=== PATIENT | male | born 1960 | race Caucasian/White ===

== ENCOUNTER 2019-08-11 08:41 | Emergency (ER) | payer OTHER ==
[~2019-08-11] VITALS: Ht 188 cm; Wt 107.8 kg
[2019-08-11] MEDS ORDERED: KETOROLAC 30 MG/ML VIAL (J1885) IV ONE (09:15)
[2019-08-11 09:29] LABS: BASO # 0.1 10^3/uL (0.0-0.2); BASO % 0.7 % (0.0-1.0); EOS # 0.3 10^3/uL (0.0-0.5); EOS % 3.3 % (0.0-3.0); HEMATOCRIT 46.9 % (42.0-52.0); HEMOGLOBIN 15.3 g/dl (13.5-17.5); LYMPH # 2.2 10^3/uL (1.5-5.0); LYMPH % 23.6 % (24.0-44.0); MEAN CORPUSCULAR HEMOGLOBIN 31.5 pg (27.0-33.0); MEAN CORPUSCULAR HGB CONC 32.6 g/dl (32.0-36.5); MEAN CORPUSCULAR VOLUME 96.7 fl (80.0-96.0); MONO # 0.8 10^3/uL (0.0-0.8); MONO % 8.3 % (0.0-5.0); NEUTROPHILS # 5.9 10^3/uL (1.5-8.5); NEUTROPHILS % 63.8 % (36.0-66.0); PLATELET COUNT, AUTOMATED 364 10^3/uL (150-450); RED BLOOD COUNT 4.85 10^6/uL (4.30-6.10); WHITE BLOOD COUNT 9.2 10^3/uL (4.0-10.0)
[2019-08-11] MEDS ORDERED: MORPHINE 4 MG/ML 1ML VIAL/SYRINGE (J2270) IV ONE (09:45)
[2019-08-11 09:58] LABS: ALBUMIN 3.7 GM/DL (3.2-5.2); ALT/SGPT 29 U/L (12-78); BILIRUBIN,DIRECT < 0.1 MG/DL (0.0-0.2); BILIRUBIN,TOTAL 0.5 MG/DL (0.2-1.0); BLOOD UREA NITROGEN 9 MG/DL (7-18); CARBON DIOXIDE LEVEL 28 MEQ/L (21-32); CHLORIDE LEVEL 106 MEQ/L (98-107); CREATININE FOR GFR 1.18 MG/DL (0.70-1.30); GLOMERULAR FILTRATION RATE > 60.0 (>56); GLUCOSE, FASTING 94 MG/DL (70-100); LIPASE 107 U/L (73-393); POTASSIUM SERUM 3.9 MEQ/L (3.5-5.1); SODIUM LEVEL 141 MEQ/L (136-145); TOTAL PROTEIN 7.3 GM/DL (6.4-8.2)
[2019-08-11] MEDS ORDERED: CIPR-249 PO (10:55)
[2019-08-11] MEDS ORDERED: NORC1TAB7 PO (10:55)
[2019-08-11] MEDS ORDERED: FLAG500T PO (10:55)
[2019-08-11] MEDS ORDERED: ONDA4TAB6 PO (10:55)
--- NOTE | 2019-08-11 10:58 | REP ---
CT ABDOMEN AND PELVIS WITHOUT IV OR ORAL CONTRAST: HISTORY: Right flank pain, rule out stone. No comparison CT study. CT FINDINGS: Preliminary digital trim installer radiograph is unremarkable. Normal bowel gas pattern. The lung bases are clear on axial CT images. The liver and the spleen are normal in size homogeneous in texture. No abnormality is noted the gallbladder or pancreas. No adrenal lesion is seen. There is no evidence of intrarenal nephrolithiasis or hydronephrosis on either side. No retroperitoneal mass or adenopathy is observed. Normal appendix is seen retrocecal in position. There is sigmoid colon diverticulosis. There is some diverticulosis in the descending colon as well. There is a segment of mural thickening associated with diverticulosis in the sigmoid colon and there is some pericolonic fat streaking extending superiorly to the left of midline consistent with acute diverticulitis. No abscess or un-contained gas is seen. No free intraperitoneal air is seen. No abdominal wall defect. No bony destructive lesion. There are a few dystrophic calcifications in the prostate. Urinary bladder is unremarkable. IMPRESSION: Findings consistent with acute diverticulitis of the sigmoid colon. No free air or abscess seen. No urinary tract calculus or hydronephrosis seen. Normal appendix. Electronically Signed by Dawit Hall MD 08/11/2019 07:37 P
[2019-08-11 11:18] VITALS: BP 141/92
== END 2019-08-11 11:20 | disposition home or self-care (01) ==
LOC: M ED 08:41
DX: K57.32 Diverticulitis of large intestine without perforation or abscess without bleeding (principal); Z87.442 Personal history of urinary calculi; Z87.891 Personal history of nicotine dependence
CPT/HCPCS: 74176; 80047; 80048; 80076; 81001; 83690; 85025; 96374; 99284; J1885

== ENCOUNTER 2020-05-22 08:01 | Inpatient (IN) | payer OTHER ==
[~2020-05-22 08:01] MED LIST: CIPR-249 PO; FLAG500T PO; NORC1TAB7 PO; ONDA4TAB6 PO
[2020-05-22] MEDS ORDERED: ACETAMINOPHEN 500 MG TAB As Ordered ONE ×2 (08:53→21:46)
[2020-05-22] MEDS ORDERED: ISOVUE-370 76% 100ML VIAL As Ordered ONE (10:36)
[2020-05-22] MEDS ORDERED: KETOROLAC 30 MG/ML 1ML VIAL As Ordered ONE ×2 (12:17→18:13)
[2020-05-22] MEDS ORDERED: ZOSYN 3.375GM VIAL (J2543) As Ordered ONE ×2 (12:21→18:12)
[2020-05-22] MEDS ORDERED: PANTOPRAZOLE 40MG VIAL (C9113 PER 1) As Ordered ONE (21:06)
[2020-05-23] MEDS ORDERED: KETOROLAC 30 MG/ML 1ML VIAL ONE ×3 (00:28→17:35)
[2020-05-23] MEDS ORDERED: ZOSYN 3.375GM VIAL (J2543) As Ordered ONE ×4 (00:28→18:28)
[2020-05-23] MEDS ORDERED: KETOROLAC 30 MG/ML 1ML VIAL As Ordered ONE ×3 (00:28→17:35)
[2020-05-23] MEDS ORDERED: ZOSYN 3.375GM VIAL (J2543) ONE ×4 (00:28→18:28)
[2020-05-23] MEDS ORDERED: ENOXAPARIN 40MG/0.4ML SYRINGE (J1650 PER 10MG) As Ordered ONE (08:30)
[2020-05-23] MEDS ORDERED: ENOXAPARIN 40MG/0.4ML SYRINGE (J1650 PER 10MG) ONE (08:30)
[2020-05-23] MEDS ORDERED: ONDANSETRON 4MG/2ML VIAL As Ordered ONE (15:45)
[2020-05-23] MEDS ORDERED: ONDANSETRON 4MG/2ML VIAL ONE (15:45)
[2020-05-23] MEDS ORDERED: GASTROGRAFIN SOLUTION 30ML (Q9963) ONE (18:28)
[2020-05-23] MEDS ORDERED: GASTROGRAFIN SOLUTION 30ML (Q9963) As Ordered ONE (18:29)
[2020-05-23] MEDS ORDERED: ISOVUE-370 76% 100ML VIAL As Ordered ONE (20:38)
[2020-05-23] MEDS ORDERED: PANTOPRAZOLE 40MG VIAL (C9113 PER 1) ONE (21:02)
[2020-05-23] MEDS ORDERED: PANTOPRAZOLE 40MG VIAL (C9113 PER 1) As Ordered ONE (21:02)
[2020-05-24] MEDS ORDERED: ZOSYN 3.375GM VIAL (J2543) ONE ×4 (06:05→18:01)
[2020-05-24] MEDS ORDERED: ZOSYN 3.375GM VIAL (J2543) As Ordered ONE ×4 (06:05→18:01)
[2020-05-24] MEDS ORDERED: METOCLOPRAMIDE INJ 10MG/2ML VIAL (J2765 PER 1) As Ordered ONE (14:13)
[2020-05-24] MEDS ORDERED: ONDANSETRON 4MG/2ML VIAL As Ordered ONE (14:13)
[2020-05-24] MEDS ORDERED: propofoL 200 MG/20 ML VIAL As Ordered ONE (14:13)
[2020-05-24] MEDS ORDERED: LIDOCAINE 2% 100MG/5ML SDV (FOR ANES.) As Ordered ONE (14:13)
[2020-05-24] MEDS ORDERED: ROCURONIUM BROMIDE 50 MG/5 ML VIAL As Ordered ONE (14:13)
[2020-05-24] MEDS ORDERED: fentaNYL 100 MCG/2 ML INJECTION (J3010) As Ordered ONE ×3 (14:14→15:40)
[2020-05-24] MEDS ORDERED: MIDAZOLAM INJ 2MG/2ML VIAL (J2250 PER 1MG) As Ordered ONE (14:14)
[2020-05-24] MEDS ORDERED: LIDOCAINE 1% SDV 30ML VIAL As Ordered ONE (14:43)
[2020-05-24] MEDS ORDERED: BUPIVACAINE HCL 0.25% 30ML VIAL As Ordered ONE (14:43)
[2020-05-24] MEDS ORDERED: BUPIVACAINE HCL 0.25% 10ML VIAL As Ordered ONE (14:49)
[2020-05-24] MEDS ORDERED: BUPIVACAINE LIPOSOME/PF 1.3% 20ML VIAL (13.3MG/ML)(EXPAREL)(C9290 PER1MG) As Ordered ONE (14:49)
[2020-05-24] MEDS ORDERED: LABETALOL 100MG/20ML VIAL As Ordered ONE (15:09)
[2020-05-24] MEDS ORDERED: SUGAMMADEX SODIUM 500 MG/5 ML VIAL (BRIDION) As Ordered ONE (15:32)
[2020-05-24] MEDS ORDERED: oxyCODONE 5MG TAB As Ordered ONE (16:40)
[2020-05-24] MEDS ORDERED: oxyCODONE 5MG TAB ONE ×2 (16:40)
[2020-05-24] MEDS ORDERED: PANTOPRAZOLE 40MG VIAL (C9113 PER 1) ONE (20:05)
[2020-05-24] MEDS ORDERED: SENOKOT S TAB As Ordered ONE (20:05)
[2020-05-24] MEDS ORDERED: PANTOPRAZOLE 40MG VIAL (C9113 PER 1) As Ordered ONE (20:05)
[2020-05-24] MEDS ORDERED: SENOKOT S TAB ONE (20:05)
[2020-05-24] MEDS ORDERED: ACETAMINOPHEN 500 MG TAB ONE (22:26)
[2020-05-24] MEDS ORDERED: ACETAMINOPHEN 500 MG TAB As Ordered ONE (22:26)
[2020-05-25] MEDS ORDERED: KETOROLAC 30 MG/ML 1ML VIAL As Ordered ONE ×4 (00:14→18:59)
[2020-05-25] MEDS ORDERED: KETOROLAC 30 MG/ML 1ML VIAL ONE ×4 (00:14→18:58)
[2020-05-25] MEDS ORDERED: ZOSYN 3.375GM VIAL (J2543) As Ordered ONE ×4 (00:14→18:58)
[2020-05-25] MEDS ORDERED: ZOSYN 3.375GM VIAL (J2543) ONE ×4 (00:14→18:58)
[2020-05-25] MEDS ORDERED: ENOXAPARIN 40MG/0.4ML SYRINGE (J1650 PER 10MG) ONE (10:10)
[2020-05-25] MEDS ORDERED: SENOKOT S TAB As Ordered ONE (10:10)
[2020-05-25] MEDS ORDERED: ENOXAPARIN 40MG/0.4ML SYRINGE (J1650 PER 10MG) As Ordered ONE (10:10)
[2020-05-25] MEDS ORDERED: SENOKOT S TAB ONE (10:10)
[2020-05-25] MEDS ORDERED: PANTOPRAZOLE 40MG VIAL (C9113 PER 1) ONE (21:11)
[2020-05-25] MEDS ORDERED: PANTOPRAZOLE 40MG VIAL (C9113 PER 1) As Ordered ONE (21:11)
[2020-05-25] MEDS ORDERED: SENNA 8.6 MG TAB (SENOKOT) As Ordered ONE (21:11)
[2020-05-25] MEDS ORDERED: SENNA 8.6 MG TAB (SENOKOT) ONE (21:11)
[2020-05-26] MEDS ORDERED: ZOSYN 3.375GM VIAL (J2543) ONE ×4 (00:11→18:51)
[2020-05-26] MEDS ORDERED: KETOROLAC 30 MG/ML 1ML VIAL ONE ×2 (00:11→06:20)
[2020-05-26] MEDS ORDERED: ZOSYN 3.375GM VIAL (J2543) As Ordered ONE ×4 (00:11→18:51)
[2020-05-26] MEDS ORDERED: KETOROLAC 30 MG/ML 1ML VIAL As Ordered ONE ×2 (00:12→06:20)
[2020-05-26] MEDS ORDERED: SENOKOT S TAB ONE (09:27)
[2020-05-26] MEDS ORDERED: SENOKOT S TAB As Ordered ONE (09:27)
[2020-05-26] MEDS ORDERED: ENOXAPARIN 40MG/0.4ML SYRINGE (J1650 PER 10MG) ONE (09:27)
[2020-05-26] MEDS ORDERED: ENOXAPARIN 40MG/0.4ML SYRINGE (J1650 PER 10MG) As Ordered ONE (09:27)
[2020-05-26] MEDS ORDERED: PANTOPRAZOLE 40MG VIAL (C9113 PER 1) As Ordered ONE (21:25)
[2020-05-26] MEDS ORDERED: SENNA 8.6 MG TAB (SENOKOT) As Ordered ONE (21:25)
[2020-05-26] MEDS ORDERED: PANTOPRAZOLE 40MG VIAL (C9113 PER 1) ONE (21:25)
[2020-05-26] MEDS ORDERED: SENNA 8.6 MG TAB (SENOKOT) ONE (21:25)
[2020-05-27] MEDS ORDERED: ZOSYN 3.375GM VIAL (J2543) As Ordered ONE ×2 (00:10→06:28)
[2020-05-27] MEDS ORDERED: ZOSYN 3.375GM VIAL (J2543) ONE ×2 (00:10→06:28)
[2020-05-27] MEDS ORDERED: ENOXAPARIN 40MG/0.4ML SYRINGE (J1650 PER 10MG) ONE (07:46)
[2020-05-27] MEDS ORDERED: SENOKOT S TAB As Ordered ONE (07:46)
[2020-05-27] MEDS ORDERED: ENOXAPARIN 40MG/0.4ML SYRINGE (J1650 PER 10MG) As Ordered ONE (07:46)
[2020-05-27] MEDS ORDERED: SENOKOT S TAB ONE (07:46)
[2020-06-30 09:12] LABS: HEMOGLOBIN 14.6 g/dl (13.5-17.5); MEAN CORPUSCULAR HEMOGLOBIN 30.7 pg (27.0-33.0); MEAN CORPUSCULAR HGB CONC 32.4 g/dl (32.0-36.5); MEAN CORPUSCULAR VOLUME 94.7 fl (80.0-96.0); PLATELET COUNT, AUTOMATED 344 10^3/uL (150-450); RED BLOOD COUNT 4.75 10^6/uL (4.30-6.10); WHITE BLOOD COUNT 15.4 10^3/uL (4.0-10.0)
--- NOTE | 2020-07-02 15:39 | ER ---
DATE: 05/22/2020 Consult to the emergency room provider and hospitalist service. The full consult note will be dictated by my resident. This is an addendum to that consult note. I have presently examined and spoken to the patient in the presence of my resident while he was in the emergency room. This is a 60-year-old gentleman who presented with 1-1/2 week history of lower quadrant abdominal pain, constipation, difficulty in having bowel movements. Otherwise has been denying fevers, chills, and is able to tolerate some oral diet, though has been anorexic for the same length of time. In the emergency room (ER), he was found to have a focus of sigmoid colon diverticulitis with an associated pericolonic abscess that the radiologist does not feel is percutaneously drainable, thus a surgical consult was obtained. On examination, patient looks fairly comfortable. He is able to move around, lie supine, and get up out of bed without much increase in discomfort. He is not sick appearing and generally looks healthy. His abdominal exam shows tenderness over the suprapubic area and less so at the left lower quadrant area with some referred tenderness in both flank areas. He has mild guarding on light palpation over the suprapubic area. He is nontender on the upper abdomen. His lab shows leukocytosis of 16,000. IMPRESSION AND PLAN: This patient has diverticulitis with a pericolonic abscess, Hinchey stage II. Unfortunately, this is not percutaneously drainable. Suggest continue hospital admission. Patient has been started on intravenous (IV) Zosyn, which should adequately cover for the most common infectious causes of this. Recommend to place him nothing by mouth for bowel rest. He may have ice chips and some sips of water for comfort. Suggest repeating a CT scan on Wednesday to see if there is any improvement of the abscess or possibility of percutaneous drainage of the abscess otherwise. If he is not clinically improved, then I discussed with him surgical options, which include laparoscopic drainage of the abscess versus continuing with sigmoid colectomy and end-colostomy. Given that he is not that sick, would favor laparoscopic drainage of abscess, though this has about a 40% chance of failure rate, and we may still need to do the colon resection if he is not clinically improved despite the drainage of the abscess or if this eventually develops into a fistula. LISA
--- NOTE | 2020-07-04 12:28 | CR ---
DATE: 05/22/2020 HISTORY OF PRESENT ILLNESS: This 59-year-old male presented to the emergency department with a severe continuous 8/10 dull aching pain in his lower abdomen, radiating to both his flanks. The pain is relieved by a degree after passing stools. There are no aggravating factors. The pain is relieved after he passes his bowels. This is his second episode of this lower abdominal pain. His first was three months ago when he was treated for diverticulitis by oral antibiotics. He has been doing fine since then up until two weeks after when he started with mild discomfort in the lower abdominal area. He was tolerating it up until now, when at 7:30 in the morning he started having unbearable pain and came to the emergency department. He has no diarrhea, no nausea, no vomiting, and no fever; but he has a history of unintentional weight loss. He has a history of constipation since the last two days. No history of travel. No history of any retching or pain anywhere else. Genitourinary system is all normal. PAST MEDICAL HISTORY: Positive for gastroesophageal reflux disease, diverticulitis, and kidney stones. PAST SURGICAL HISTORY: Positive for two back surgeries for his lumbar disc, one was done in 1996 and the other was done in 2009. FAMILY HISTORY: Significant for pancreatic cancer in mom and prediabetic on the maternal side. Unremarkable on the paternal side. SOCIAL HISTORY: He has been a previous smoker for more than 30 years. He has quit recently. He says that he has not had any cigarette since the last one year. He does not drink as much. No drug use. MEDICATIONS: He is currently on no medication at home. LABORATORY DATA: When we got the labs done, the white blood counts were 15,000, hemoglobin was 14. A CT scan was done with IV contrast, which showed acute diverticulitis in the sigmoid colon with a pericolonic abscess the size of 3.1 x 2 x 1.6 cm. Mild left hydronephrosis was also seen. Currently patient is on IV antibiotics of Zosyn 3.375 mg. PHYSICAL EXAMINATION: The patient was sitting on the examination table in acute distress due to the pain, holding onto his lower abdomen. He was alert, oriented to time, place, and person. HEAD: There is no pain, no tenderness. ENT: There are no masses, no swelling or lymphadenopathy. No discharge from the eyes, nose, mouth. No pallor, no icterus. Extraocular muscles (EOM) normal. NECK: No thyromegaly. No carotid bruits. Bronchial breath sounds heard. LUNGS: The breath sounds were normal. No wheezing. No rhonchi. No crackles. CARDIOVASCULAR: Normal heart sounds. No murmurs. No rubs. ABDOMEN: The abdomen looked nondistended. No scars. No rashes. No color change. On palpation, normal temperature. The lower abdominal area was very tender, and it extended all across to the bilateral flanks. On auscultation, abdomen was tympanitic, and the bowel sounds were heard about two to three times. On percussion, tympanitic notes were heard. No organomegaly was felt. NEUROLOGIC: Sensations intact, and his gross motor was normal in all four extremities. Cranial nerves from II-XII normal. Pulse was regular, good volume. There is no cyanosis, no clubbing, and no edema in the extremities. IMPRESSION AND PLAN: The diagnosis made on the basis of the presentation was made as complicated diverticulitis. PLAN: To admit the patient under Medicine. Continue IV antibiotics with Zosyn 4.5 grams every 6-8 hours, supportive care, nil per oral, bowel rest. We are thinking of getting a follow-up CT done on Wednesday to look at the status of the abscess. We talked to the patient about a percutaneous drainage, which will be done by Radiology; but if that is not possible, probably will have to do a laparoscopic drainage versus resection and colostomy. LISA
[2020-07-10] MEDS ORDERED: DOCU-129 PO (08:29)
--- NOTE | 2020-07-12 12:46 | REP ---
CT OF THE ABDOMEN AND PELVIS WITH IV BUT WITHOUT ORAL CONTRAST: HISTORY: Lower abdominal pain, history of diverticulitis. Patient states symptoms feel the same. COMPARISON: No comparison study is available at this junction. CONTRAST DOSE: 100 ml of intravenous Isovue 370 is administered. FINDINGS: Preliminary digital marine services technician radiograph is unremarkable. There is minimal linear bibasilar platelike atelectasis in the lung bases. The lung bases are otherwise clear. The liver and spleen are normal in size. There are several tiny hepatic cysts. No focal splenic lesion is seen. No abnormality is noted in the gallbladder or the pancreas. Normal adrenal glands are seen bilaterally. No retroperitoneal mass or adenopathy is seen. The small and large intestinal bowel loops are normal in caliber. There is mural thickening and pericolonic fat streaking in the sigmoid colon in the central pelvis consistent with acute diverticulitis. There is a pericolonic abscess cavity measuring 3.1 x 2.0 x 1.6 cm along the superior wall of the sigmoid colon, consistent with a pericolonic abscess. This is not accessible to percutaneous drainage. There is no evidence of free air. There is however, associated left-sided mild hydronephrosis. The left distal ureter is seen coursing adjacent to the pericolonic inflammation. A normal appendix is seen. The study is otherwise unremarkable. IMPRESSION: Findings consistent with acute diverticulitis of the sigmoid colon with a small pericolonic abscess in the central pelvis 3.1 cm in greatest diameter and not accessible to percutaneous drainage. There is mild associated left-sided hydronephrosis due to proximity of the distal ureter with the pericolonic inflammation. MTDD
[2020-07-13 15:38] LABS: BASO % 0.2 % (0.0-1.0); EOS % 0.1 % (0.0-3.0); HEMATOCRIT 39.6 % (42.0-52.0); HEMOGLOBIN 13.1 g/dl (13.5-17.5); LYMPH # 1.6 10^3/uL (1.5-5.0); LYMPH % 9.2 % (24.0-44.0); MEAN CORPUSCULAR HEMOGLOBIN 31.3 pg (27.0-33.0); MEAN CORPUSCULAR HGB CONC 33.1 g/dl (32.0-36.5); MEAN CORPUSCULAR VOLUME 94.5 fl (80.0-96.0); MONO # 1.9 10^3/uL (0.0-0.8); MONO % 10.7 % (0.0-5.0); NEUTROPHILS # 13.7 10^3/uL (1.5-8.5); NEUTROPHILS % 79.2 % (36.0-66.0); PLATELET COUNT, AUTOMATED 304 10^3/uL (150-450); RED BLOOD COUNT 4.19 10^6/uL (4.30-6.10); WHITE BLOOD COUNT 17.3 10^3/uL (4.0-10.0)
[2020-07-15 20:27] LABS: HEMATOCRIT 36.3 % (42.0-52.0); MEAN CORPUSCULAR HEMOGLOBIN 30.9 pg (27.0-33.0); MEAN CORPUSCULAR HGB CONC 32.5 g/dl (32.0-36.5); PLATELET COUNT, AUTOMATED 307 10^3/uL (150-450); RED BLOOD COUNT 3.82 10^6/uL (4.30-6.10); WHITE BLOOD COUNT 11.3 10^3/uL (4.0-10.0)
[2020-07-15 20:36] LABS: HEMOGLOBIN 11.8 g/dl (13.5-17.5)
[2020-07-17 10:30] LABS: HEMATOCRIT 36.5 % (42.0-52.0); HEMOGLOBIN 11.9 g/dl (13.5-17.5); MEAN CORPUSCULAR HEMOGLOBIN 31.1 pg (27.0-33.0); MEAN CORPUSCULAR HGB CONC 32.6 g/dl (32.0-36.5); MEAN CORPUSCULAR VOLUME 95.3 fl (80.0-96.0); PLATELET COUNT, AUTOMATED 355 10^3/uL (150-450); RED BLOOD COUNT 3.83 10^6/uL (4.30-6.10); WHITE BLOOD COUNT 10.2 10^3/uL (4.0-10.0)
--- NOTE | 2020-07-24 12:51 | RO ---
Date of Operation: 05/24/2020 Pre-op diagnosis: Acute diverticulitis with abscess Post-op diagnosis: [id number] diverticulitis with abscess. Procedure: Diagnostic laparoscopy, laparoscopic drainage of abscess. Surgeon: Fernandez Bedolla MD Life Skills Educator: Brittany Nagy DO ([id number]) Anesthesia: General anesthesia with left-side transversus abdominis plane block. Estimated blood loss: 20 mL Drain: 19 Hebrew Anoop drain. Procedure note: Mr. Jacobs is currently admitted to the hospital with about a two week history of persistent left lower quadrant abdominal pain, has been placed on IV antibiotics and has persistent low grade fever about two nights now, getting better. He has a documented area at the sigmoid colon which is moderately inflamed with about a 3 x 2 abscess that is not amenable to percutaneous drainage and persistent leukocytosis. He has consented to attempt to drain the abscess. Description of Operation: The patient is receiving Zosyn 3.375 gm IV every six hours perioperatively. He was brought to the operating room, placed supine on the table. Compression boots were placed on his lower extremities for DVT prophylaxis. General endotracheal anesthesia started. A Duque catheter was placed for urine output monitoring. His abdomen was then prepped and draped in the usual sterile fashion. We performed a surgical timeout prior to start of the incision. Entry into the abdomen done through small incision just above the umbilicus via Veress needle technique. CO2 insufflation started to a pressure of 15 mmHg. Using the same incision, a 5 mm Visiport was placed under direct vision of a laparoscope. The insertion site was inspected for injury. None was found. He was placed in steep Trendelenburg position, tilted towards the right side to tuck the bowels away from the left lower quadrant area. I placed a 5 mm suprapubic port and a 5 mm right lower quadrant port under direct vision. On diagnostic laparoscopy, there was no free fluid. Most of the bowels are covered with a thick omentum. The small bowel seems to be freely movable except for a loop of bowel tethered on the right side. Most of the pelvis is occupied by a very chronically thickened and inflamed sigmoid colon which was adhered to the left pelvic sidewall. The area of inflammation seems to be limited to the mid- sigmoid, tapering down to healthy ends at the proximal sigmoid. The distal sigmoid and rectum could not be fully evaluated due to the amount of thickening of the sigmoid colon precluding adequate view. He has this incidental finding of a small indirect left inguinal hernia. By palpation, the area where it was inflamed was noted. With blunt dissection using a grasper and suction device, we were able to enter the abscess cavity with immediate drainage of purulent, bloody material. No signs of an ongoing fecal fistula was noted. We suctioned off the abscess and irrigated this and sent some of the abscess for gram stain and culture. I tried to detach the sigmoid colon with blunt dissection using the laparoscopic instruments but this was widely adhered to the pelvic sidewall and fearing further injury, stopped at this time. I chose a 19 Anoop drain, threaded this through the suprapubic port coming out of the right lower quadrant port site and threaded this through the abscess cavity. A final check was done. When adequate hemostasis was ensured, the abdomen was deflated. All ports were removed. The drain was secured to the skin with 2-0 silk. All skin incisions were closed with 4-0 Monocryl in subcuticular stitch. Steri-Strips, gauze dressing and Tegaderm were used for wound coverage. The patient was promptly awakened, extubated and brought to the recovery room in stable condition. LISA
--- NOTE | 2020-07-24 14:02 | IPN ---
DATE: 05/26/2020 No acute events overnight. Patient has been up ambulating around in the halls without any complications. He is tolerating a clear liquid diet. He denies nausea, vomiting. No fevers or chills. He is having some soft bowel movements. He denies any abdominal pains. His drain is still in place with serosanguinous fluid and a slight cloudiness to it, but otherwise looks very good, no signs of any fecal material or bile within it. On exam, his abdomen is soft, nontender, nondistended, and again the drain is in place. RECOMMENDATIONS: At this time, is to advance him to a regular, low-residue diet. We will keep him on that overnight, discontinue his IV fluids but continue his antibiotics. His labs are all back to normal as well and we will plan to likely discharge him home first thing tomorrow morning with Dr. Bedolla. LISA
--- NOTE | 2020-07-24 14:05 | IPN ---
DATE: 05/25/2020 SUBJECTIVE: The patient is postop day 1 from laparoscopic drain placement with Dr. Bedolla. He has no complaints this morning. His abdominal pain is significantly improved. He did have one fever in the middle of the night, just over 101. Otherwise, he has been afebrile. Denies any nausea or vomiting. No chills. He has been ambulating. The drain in the right lower quadrant was emptied a couple of times overnight, but remains light pink in color. He is tolerating diet and passing gas currently without any other complaints. Vitals are all stable; afebrile currently, just had a fever of 101 around midnight. PHYSICAL EXAMINATION: Abdomen soft, slight tenderness to palpation. Diffuse and appropriate. No rebounding or guarding. Drain is coming out of the right lower quadrant with serosanguinous drainage LABORATORY: Pending. ASSESSMENT: The patient again postop day 1 from laparoscopic washout of the right lower quadrant and drainage of pericolonic abscess secondary to diverticulitis with abscess. His fevers are improving. His pain is significantly improved and he is tolerating diet. Recommend to continue with I.V. fluids, antibiotics, regular diet for today. As long his labs continue to improve, will plan for likely discharge home tomorrow with p.o. antibiotics and he will followup with Dr. Bedolla as an outpatient to have that drain removed. LISA
[2020-08-04 11:12] LABS: ALBUMIN 3.8 GM/DL (3.2-5.2); ALT/SGPT 24 U/L (12-78); BILIRUBIN,TOTAL 1.5 MG/DL (0.2-1.0); BLOOD UREA NITROGEN 11 MG/DL (7-18); CALCIUM LEVEL 9.2 MG/DL (8.5-10.1); CARBON DIOXIDE LEVEL 30 MEQ/L (21-32); CHLORIDE LEVEL 103 MEQ/L (98-107); CREATININE FOR GFR 1.23 MG/DL (0.70-1.30); GLOMERULAR FILTRATION RATE > 60.0 (>56); GLUCOSE, FASTING 96 MG/DL (70-100); POTASSIUM SERUM 3.9 MEQ/L (3.5-5.1); SODIUM LEVEL 139 MEQ/L (136-145); TOTAL PROTEIN 7.5 GM/DL (6.4-8.2)
[2020-08-14 13:57] LABS: BLOOD UREA NITROGEN 8 MG/DL (7-18); CALCIUM LEVEL 8.3 MG/DL (8.5-10.1); CARBON DIOXIDE LEVEL 29 MEQ/L (21-32); CHLORIDE LEVEL 105 MEQ/L (98-107); CREATININE FOR GFR 1.19 MG/DL (0.70-1.30); GLOMERULAR FILTRATION RATE > 60.0 (>56); GLUCOSE, FASTING 90 MG/DL (70-100); POTASSIUM SERUM 3.7 MEQ/L (3.5-5.1); SODIUM LEVEL 137 MEQ/L (136-145)
[2020-08-18 06:43] LABS: BLOOD UREA NITROGEN 8 MG/DL (7-18); CALCIUM LEVEL 8.7 MG/DL (8.5-10.1); CARBON DIOXIDE LEVEL 27 MEQ/L (21-32); CHLORIDE LEVEL 107 MEQ/L (98-107); CREATININE FOR GFR 1.13 MG/DL (0.70-1.30); GLOMERULAR FILTRATION RATE > 60.0 (>56); GLUCOSE, FASTING 96 MG/DL (70-100); POTASSIUM SERUM 3.8 MEQ/L (3.5-5.1); SODIUM LEVEL 142 MEQ/L (136-145)
[2020-08-20 03:30] LABS: ALBUMIN 2.4 GM/DL (3.2-5.2); ALT/SGPT 15 U/L (12-78); BILIRUBIN,TOTAL 1.5 MG/DL (0.2-1.0); BLOOD UREA NITROGEN 9 MG/DL (7-18); CALCIUM LEVEL 7.9 MG/DL (8.5-10.1); CARBON DIOXIDE LEVEL 27 MEQ/L (21-32); CHLORIDE LEVEL 108 MEQ/L (98-107); CREATININE FOR GFR 1.01 MG/DL (0.70-1.30); GLOMERULAR FILTRATION RATE > 60.0 (>56); GLUCOSE, FASTING 114 MG/DL (70-100); POTASSIUM SERUM 3.8 MEQ/L (3.5-5.1); SODIUM LEVEL 141 MEQ/L (136-145); TOTAL PROTEIN 5.6 GM/DL (6.4-8.2)
[2020-08-23 09:14] LABS: ALBUMIN 2.8 GM/DL (3.2-5.2); ALT/SGPT 17 U/L (12-78); BILIRUBIN,TOTAL 1.3 MG/DL (0.2-1.0); BLOOD UREA NITROGEN 7 MG/DL (7-18); CALCIUM LEVEL 8.6 MG/DL (8.5-10.1); CARBON DIOXIDE LEVEL 31 MEQ/L (21-32); CHLORIDE LEVEL 104 MEQ/L (98-107); CREATININE FOR GFR 1.12 MG/DL (0.70-1.30); GLOMERULAR FILTRATION RATE > 60.0 (>56); GLUCOSE, FASTING 94 MG/DL (70-100); POTASSIUM SERUM 3.5 MEQ/L (3.5-5.1); SODIUM LEVEL 138 MEQ/L (136-145); TOTAL PROTEIN 6.2 GM/DL (6.4-8.2)
== END 2020-05-27 10:58 | disposition home or self-care (01) | DRG 345 ==
LOC: M ED 08:01 → M MSPAV 15:16
PROVIDERS: ADMIT Internal Medicine Nephrology; ATTEND Internal Medicine Nephrology
PROC: 0D9N4ZZ Drainage of Sigmoid Colon, Percutaneous Endoscopic Approach (ICD-10-PCS; principal; 2020-05-24)
DX: K57.80 Diverticulitis of intestine, part unspecified, with perforation and abscess without bleeding (principal); N39.0 Urinary tract infection, site not specified; N13.30 Unspecified hydronephrosis; J44.9 Chronic obstructive pulmonary disease, unspecified; K21.9 Gastro-esophageal reflux disease without esophagitis; I10 Essential (primary) hypertension; E78.00 Pure hypercholesterolemia, unspecified; Z87.891 Personal history of nicotine dependence

== ENCOUNTER → 2020-06-20 | Outpatient (CLI) | payer OTHER ==
[~2020-06-20] MED LIST changes: +DOCU-129 PO; +GASTROGRAFIN SOLUTION 30ML (Q9963) As Ordered ONE; +ISOVUE-370 76% 100ML VIAL As Ordered ONE
--- NOTE | 2020-07-16 13:56 | REP ---
CT ABDOMEN AND PELVIS AFTER INTRAVENOUS CONTRAST COMPARISON: 05/23/2020. REASON FOR EXAM: Follow-up diverticulitis. CT CONTRAST DOSE: 100 mL of Isovue-370. Oral bowel preparatory contrast was also administered prior to the exam. FINDINGS: The lung bases are clear and unchanged. The liver, gallbladder, spleen, pancreas, adrenal glands, and kidneys are unchanged and again seen to be within normal limits. The abdominal aorta and paraaortic regions are unchanged and again seen to be within normal limits. Diverticulitis seen previously involving the sigmoid colon with a small associated abscess has markedly improved. There is minimal perisigmoidal fatty infiltration. The suspected abscess seen previously, which measured approximately 3.6 cm, now appears to be scarred down with a maximal dimension of 1 cm and having central fatty density. No free fluid or free air is seen in the abdomen or pelvis. There is no intestinal obstruction. Note is again made of descending diverticulosis. There is no change in the osseous structures. IMPRESSION: Markedly improved sigmoid colon diverticular changes and related findings as described above. MTDD
== END ==
LOC: M RAD 10:46
PROVIDERS: ATTEND Surgery
DX: K57.20 Diverticulitis of large intestine with perforation and abscess without bleeding (principal)

== ENCOUNTER → 2020-07-12 | Outpatient (CLI) | payer OTHER ==
[~2020-07-12] MED LIST changes: -GASTROGRAFIN SOLUTION 30ML (Q9963) As Ordered ONE; -ISOVUE-370 76% 100ML VIAL As Ordered ONE
== END ==
LOC: M LABSMTC 11:05
PROVIDERS: ATTEND Anesthesiology
DX: Z01.812 Encounter for preprocedural laboratory examination (principal); Z20.828 Contact with and (suspected) exposure to other viral communicable diseases
CPT/HCPCS: C9803; U0003

== ENCOUNTER 2020-07-17 08:22 | Day surgery (SDC) | payer OTHER ==
[~2020-07-17] VITALS: Ht 188 cm; Wt 96.2 kg
[~2020-07-17 08:22] MED LIST changes: +NS 1,000 ML IV ONE
[2020-07-17] MEDS ORDERED: LIDOCAINE 2% 100MG/5ML SDV (FOR ANES.) As Ordered ONE (09:07)
[2020-07-17] MEDS ORDERED: propofoL 200 MG/20 ML VIAL As Ordered ONE ×2 (09:07→10:12)
--- NOTE | 2020-07-17 10:37 | ROOR ---
Patient Name: Heraclio Jacobs Procedure Date: 07/17/2020 9:32 AM Date of : 1960 Age: 59 Room: [facility] Gender: Male Note Status: Finalized Procedure: Colonoscopy Indications: Follow-up of diverticulitis Providers: Fernandez Bedolla MD Referring MD: Lindsay Angela DO Requesting Provider: Medicines: Monitored Anesthesia Care Complications: No immediate complications. Procedure: Pre-Anesthesia Assessment: - Prior to the procedure, a History and Physical was performed, and patient medications and allergies were reviewed. The patient is competent. The risks and benefits of the procedure and the sedation options and risks were discussed with the patient. All questions were answered and informed consent was obtained. Patient identification and proposed procedure were verified by the physician, the nurse and the anesthesiologist in the endoscopy suite. Mental Status Examination: alert and oriented. Airway Examination: normal oropharyngeal airway and neck mobility. Respiratory Examination: clear to auscultation. CV Examination: normal. Prophylactic Antibiotics: The patient does not require prophylactic antibiotics. Prior Anticoagulants: The patient has taken no previous anticoagulant or antiplatelet agents. ASA Grade Assessment: II - A patient with mild systemic disease. After reviewing the risks and benefits, the patient was deemed in satisfactory condition to undergo the procedure. The anesthesia plan was to use monitored anesthesia care (MAC). Immediately prior to administration of medications, the patient was re-assessed for adequacy to receive sedatives. The heart rate, respiratory rate, oxygen saturations, blood pressure, adequacy of pulmonary ventilation, and response to care were monitored throughout the procedure. The physical status of the patient was re-assessed after the procedure. The Colonoscope was introduced through the anus and advanced to the cecum, identified by appendiceal orifice and ileocecal valve. The colonoscopy was somewhat difficult due to restricted mobility of the colon. The patient tolerated the procedure well. The quality of the bowel preparation was adequate to identify polyps. Findings: Hemorrhoids were found on perianal exam. Multiple medium-mouthed diverticula were found in the sigmoid colon and descending colon. Jade-diverticular erythema was seen. There was no evidence of diverticular bleeding. This was biopsied with a cold forceps for histology. A diminutive polyp was found in the cecum. The polyp was sessile. The polyp was removed with a cold snare. Resection and retrieval were complete. Estimated blood loss was minimal. Four sessile polyps were found in the descending colon and transverse colon. The polyps were 2 to 4 mm in size. These polyps were removed with a cold biopsy forceps. Resection and retrieval were complete. Estimated blood loss was minimal. The retroflexed view of the distal rectum and anal verge was normal and showed no anal or rectal abnormalities. A small polyp was found in the sigmoid colon. The polyp was sessile. The polyp was removed with a hot snare. Resection and retrieval were complete. Impression: - Hemorrhoids found on perianal exam. - Moderate diverticulosis in the sigmoid colon and in the descending colon. Jade-diverticular erythema was seen. There was no evidence of diverticular bleeding. Biopsied. - One diminutive polyp in the cecum, removed with a cold snare. Resected and retrieved. - Four 2 to 4 mm polyps in the descending colon and in the transverse colon, removed with a cold biopsy forceps. Resected and retrieved. - The distal rectum and anal verge are normal on retroflexion view. Recommendation: - Discharge patient to home (ambulatory). - Use original regular Metamucil one teaspoon PO daily indefinitely. - Return to my office in 2 weeks. Fernandez Bedolla MD Fernandez Bedolla MD 07/17/2020 10:36:28 AM Electronically signed by Fernandez Bedolla MD Number of Addenda: 0 Note Initiated On: 07/17/2020 9:32 AM Estimated Blood Loss: Estimated blood loss was minimal.
[2020-07-17 11:00] VITALS: BP 106/77
== END 2020-07-17 11:02 | disposition home or self-care (01) ==
LOC: M OPP 08:22
PROVIDERS: ATTEND Surgery
DX: K63.5 Polyp of colon (principal); K64.8 Other hemorrhoids; K57.32 Diverticulitis of large intestine without perforation or abscess without bleeding; K57.30 Diverticulosis of large intestine without perforation or abscess without bleeding; Z09 Encounter for follow-up examination after completed treatment for conditions other than malignant neoplasm; Z87.891 Personal history of nicotine dependence

== ENCOUNTER → 2020-12-05 | Outpatient (CLI) | payer OTHER ==
[~2020-12-05] MED LIST changes: +GASTROGRAFIN SOLUTION 30ML (Q9963) As Ordered ONE; +ISOVUE-370 76% 100ML VIAL As Ordered ONE; -NS 1,000 ML IV ONE
--- NOTE | 2020-12-06 05:20 | REP ---
INDICATION: LEFT LOWER QUAD PAIN. COMPARISON: 06/20/2020 TECHNIQUE: Axial contrast-enhanced images from the lung bases to the pubic symphysis using oral and 100 cc Isovue 370 intravenous contrast material. Coronal and sagittal reformations obtained. This CT examination was performed using the following dose reduction techniques: Automated exposure control, adjustment of mA and/or kv according to the patient's size, and the use of iterative reconstruction technique. FINDINGS: Liver, spleen, pancreas, gallbladder, bilateral adrenal glands and kidneys are normal. Few incidental small hepatic hypodensities consistent with cysts measure up to 10 mm. There is no evidence for bowel obstruction. Normal appearance to the stomach and small bowel noted. No obstruction or perforation. Sigmoid colon demonstrates mucosal thickening and diverticulosis along with subtle stranding related to prior diverticulitis. No obvious acute process appreciated. Pelvis demonstrates normal bladder and age-appropriate prostate/seminal vesicles. No ascites. No free air. No intraperitoneal or retroperitoneal adenopathy. Abdominal aorta and vasculature appear normal. Musculoskeletal structures are intact and without acute osseous abnormality. IMPRESSION: No acute abdominopelvic pathology appreciated. Diverticulosis with sequelae of prior diverticulitis to sigmoid colon. <Electronically signed by Heriberto El > 12/06/20 0522
== END ==
LOC: M RAD 14:13
PROVIDERS: ATTEND Surgery
DX: R10.32 Left lower quadrant pain (principal)
CPT/HCPCS: 74177; Q9963; Q9967

== ENCOUNTER 2021-02-22 12:06 | Inpatient (IN) | payer OTHER ==
[~2021-02-22] VITALS: Ht 188 cm; Wt 100.5 kg
[~2021-02-22 12:06] MED LIST changes: -DOCU-129 PO; +DOCU-153 PO; -GASTROGRAFIN SOLUTION 30ML (Q9963) As Ordered ONE; -ISOVUE-370 76% 100ML VIAL As Ordered ONE
[2021-02-22] MEDS ORDERED: CIPR500S PO (12:17)
[2021-02-22] MEDS ORDERED: METR-265 PO (12:17)
[2021-02-22] MEDS ORDERED: MORPHINE 4 MG/ML 1ML VIAL/SYRINGE (J2270) IV ONE (13:30)
[2021-02-22] MEDS ORDERED: NS 1,000 ML IV ONE ×2 (13:30→16:00)
[2021-02-22] MEDS ORDERED: CVS1CAP2 PO (14:05)
[2021-02-22] MEDS ORDERED: COLA100C5 PO (14:05)
[2021-02-22 14:27] LABS: BASO # 0.1 10^3/uL (0.0-0.2); BASO % 0.7 % (0.0-1.0); EOS # 0.2 10^3/uL (0.0-0.5); EOS % 1.2 % (0.0-3.0); HEMATOCRIT 46.2 % (42.0-52.0); HEMOGLOBIN 15.4 g/dl (13.5-17.5); LYMPH # 2.1 10^3/uL (1.5-5.0); MEAN CORPUSCULAR HGB CONC 33.3 g/dl (32.0-36.5); MEAN CORPUSCULAR VOLUME 93.1 fl (80.0-96.0); MONO # 1.4 10^3/uL (0.0-0.8); MONO % 11.2 % (2.0-8.0); NEUTROPHILS # 8.4 10^3/uL (1.5-8.5); NEUTROPHILS % 69.5 % (36.0-66.0); PLATELET COUNT, AUTOMATED 312 10^3/uL (150-450); RED BLOOD COUNT 4.96 10^6/uL (4.30-6.10); WHITE BLOOD COUNT 12.1 10^3/uL (4.0-10.0)
--- NOTE | 2021-02-22 14:40 | REP ---
INDICATION: diverticulitis--worsening r/o free air COMPARISON: None. TECHNIQUE: Upright view of the chest with supine and upright views of the abdomen and pelvis. FINDINGS: Frontal upright view of the chest demonstrates no acute cardiopulmonary process or free air below the diaphragm to suspect pneumoperitoneum. Supine and upright views of the abdomen and pelvis demonstrate nonspecific bowel gas pattern without obstruction or perforation. No organomegaly. No abnormal calcifications. Skeletal structures normal for age. IMPRESSION: Nonspecific bowel gas pattern. No free air to suggest perforation. <Electronically signed by Heriberto El > 02/22/21 [id number]
[2021-02-22] MEDS ORDERED: metroNIDAZOLE 500 MG in IV 1 EA IV ONE (14:45)
[2021-02-22 14:50] LABS: ALBUMIN 3.8 GM/DL (3.2-5.2); ALT/SGPT 20 U/L (12-78); BILIRUBIN,DIRECT 0.2 MG/DL (0.0-0.2); BILIRUBIN,TOTAL 0.9 MG/DL (0.2-1.0); BLOOD UREA NITROGEN 16 MG/DL (7-18); C REACTIVE PROTEIN QUANTITATIV 9.32 MG/DL (0.00-0.30); CARBON DIOXIDE LEVEL 29 MEQ/L (21-32); CHLORIDE LEVEL 101 MEQ/L (98-107); CREATININE FOR GFR 1.18 MG/DL (0.70-1.30); GLOMERULAR FILTRATION RATE > 60.0 (>56); GLUCOSE, FASTING 85 MG/DL (70-100); SODIUM LEVEL 136 MEQ/L (136-145); TOTAL PROTEIN 7.4 GM/DL (6.4-8.2)
[2021-02-22] MEDS ORDERED: MOM 30ML SUSPENSION UDC PO PRN (14:55)
[2021-02-22] MEDS ORDERED: oxyCODONE 5MG TAB PO PRN ×2 (14:55)
[2021-02-22] MEDS ORDERED: ACETAMINOPHEN 500 MG TAB PO PRN (14:55)
[2021-02-22] MEDS ORDERED: MORPHINE 4 MG/ML 1ML VIAL/SYRINGE (J2270) IV PRN (14:55)
[2021-02-22] MEDS: LACTOBACILLUS ACIDOPHILUS CAP (BACID) PO SCH ×2 (16:00→21:37)
[2021-02-22] MEDS ORDERED: ENOXAPARIN 40MG/0.4ML SYRINGE (J1650 PER 10MG) SC ONE (16:00)
[2021-02-22 16:30] VITALS: BP 134/78
--- NOTE | 2021-02-22 17:43 | HPEPDOC ---
[facility] Medical History & Physical Date of Admission February 22, 2021 Date of Service: February 22, 2021 History and Physical CHIEF COMPLAINT: Bilateral lower quadrant abdominal pain the past week HISTORY OF PRESENT ILLNESS: 60-year-old male with past medical history of diverticulitis with pericolonic abscess and hinchey stage II back in 2019 was due to have colonic resection to be scheduled after March 2021 after his daughter graduates from school and usually follows with Dr. Bedolla presents to the emergency room with complaints of bilateral lower abdominal pain described as persistent achy without radiation, unchanged by position or ambulation for the past 1 week with decrease in food intake, only having scrambled eggs , despite having a good appetite. Patient denies any fever, chills, nausea, vomiting, diarrhea. Last night pain became unbearable and able to eat anything prompting him to come to the ER today. Repeat CT abdomen and pelvis on shows diverticulitis without drainable abscess or perforation. Patient has been taken Cipro and Flagyl since . Repeat abdominal x-ray today in the emergency room was negative for free air. Hospitalist was called to admit the patient for recurrent diverticuli tis. PAST MEDICAL HISTORY: Recurrent diverticulitis with pericolonic abscess, gastroesophageal reflux, kidney stones PAST SURGICAL HISTORY: Lumbar disc surgeries, 1996 2009 SOCIAL HISTORY: . Grown children. Previous smoker, more than 30 years. Patient quit in 2019. No alcohol, recreational drug use FAMILY HISTORY: Mom had pancreatic cancer Maternal side of the family. Prediabetic Father unremarkable ALLERGIES: Please see below. REVIEW OF SYSTEMS: 10 point review of system negative assessment positive findings in HPI HOME MEDICATIONS: Please see below. PHYSICAL EXAMINATION: VITAL SIGNS: See below GENERAL APPEARANCE: Awake, alert, oriented 3, no distress [place] full sentences without conversational dyspnea HEENT: Extraocular muscles intact. Pupils equally round, reactive normocephalic, atraumatic. No jaundice, icterus. Dry mucous membranes. No cervical lymphadenopathy, thyromegaly or jugular venous distention, no carotid bruit or stridor. No tracheal deviation. No use of respiratory accessory muscles CARDIOVASCULAR: S1, S2 regular rate rhythm no murmurs, rubs or gallops. No carotid bruit LUNGS: Air entry is equal bilaterally. Clear to auscultation. noWheezing, rales or rhonchi. No adventitious breath sounds and no kyphoscoliosis ABDOMEN: Positive bowel sounds 4 quadrants, soft, tender bilateral lower quadrants without rebound, guarding no hepatosplenomegaly EXTREMITIES: No cyanosis, clubbing or pitting edema LABORATORY DATA: See below. IMAGING: CT abdomen and pelvis diverticulitis without abscess or perforation Abdominal x-ray no free air MICROBIOLOGY: Please see below. ASSESSMENT: 60-year-old male with past medical history of diverticulitis with pericolonic abscess and hinchey stage II back in 2019 was due to have colonic resection to be scheduled after March 2021 after his daughter graduates from school and usually follows with Dr. Bedolla presents to the emergency room with complaints of bilateral lower abdominal pain described as persistent achy without radiation, unchanged by position or ambulation for the past 1 week with decrease in food intake, only having scrambled eggs , despite having a good appetite. Patient denies any fever, chills, nausea, vomiting, diarrhea. Last night pain became unbearable and able to eat anything prompting him to come to the ER today. Repeat CT abdomen and pelvis on shows diverticulitis without drainable abscess or perforation. Patient has been taken Cipro and Flagyl since . Repeat abdominal x-ray today in the emergency room was negative for free air. Hospitalist was called to admit the patient for recurrent diverticulitis. Recurrent diverticulitis -CT abdomen and pelvis has no perforation, free air or abscess formation. Patient be treated conservatively with nothing by mouth status, intravenous Zosyn, Cipro, Flagyl can be continued as outpatient at hospital discharge. IV fluids, pain medications. Patient had a colonoscopy done in 2019 and there are plans to do a colon resection by his general surgeon in the near future. Patient has planned to go to his daughter's graduation in March and will have the surgery scheduled after that. Gastroesophageal reflux disease -IV Protonix daily History of kidney stones -Asymptomatic DVT prophylaxis with Lovenox 40 mg daily and compression stockings Diet nothing by mouth status IV fluids CODE STATUS full code Disposition: Nothing by mouth for 48 hours. Advance diet after 72 hours. Discharge home after 72 hours, potentially on Wednesday. Vital Signs Vital Signs Date Time Temp Pulse Resp B/P (MAP) Pulse Ox O2 Delivery O2 Flow Rate FiO2 02/22/21 17:07 16 Room Air 02/22/21 16:30 98.5 67 134/78 (96) 97 Laboratory Data Labs 24H Laboratory Tests 2 02/22/21 14:13: Lactic Acid Level 1.1 02/22/21 14:14: Immature Granulocyte % (Auto) 0.4, Neutrophils (%) (Auto) 69.5H, Lymphocytes (%) (Auto) 17.0L, Monocytes (%) (Auto) 11.2H, Eosinophils (%) (Auto) 1.2, Basophils (%) (Auto) 0.7, Neutrophils # (Auto) 8.4, Lymphocytes # (Auto) 2.1, Monocytes # (Auto) 1.4H, Eosinophils # (Auto) 0.2, Basophils # (Auto) 0.1, Nucleated Red Blood Cells % (auto) 0.0, Anion Gap 6L, Glomerular Filtration Rate > 60.0, Calcium Level 9.0, Total Bilirubin 0.9, Direct Bilirubin 0.2, Aspartate Amino Transf (AST/SGOT) 18, Alanine Aminotransferase (ALT/SGPT) 20, Alkaline Phosphatase 80, C-Reactive Protein, Quantitative 9.32H, Total Protein 7.4, Albumin 3.8, Albumin/Globulin Ratio 1.1, Coronavirus (COVID-19)(PCR) NEGATIVE CBC/BMP Laboratory Tests 02/22/21 14:14 Home Medications Scheduled Ciprofloxacin (Cipro) 500 Mg/5 Ml Anahi.mc.rec, 500 MG PO BID Docusate Sodium (Colace) 100 Mg Capsule, 100 MG PO TID Lactobacillus Combo No.10 (Probiotic) 1 Each Capsule, 1 CAP PO DAILY Metronidazole (Metronidazole) 500 Mg Tablet, 500 MG PO TID Allergies Coded Allergies: No Known Allergies (Unverified , 08/11/19) A-FIB/CHADSVASC A-FIB History Current/History of A-Fib/PAF?: No Current PO Anticoag Therapy: No Age/Risk Factor Scoring CHADSVASC: CHADSVASC Response (Comments) Value Age Risk Factor Age < 65 years old 0 Gender Risk Factor Male 0 Hx of CHF No 0 Hx of HTN No 0 Hx of Stroke/TIA/or VTE No 0 Hx of Diabetes No 0 Hx of Vascular Disease No 0 Total 0 Treatment Treatment ordered: NONE VENKAT WILDER MD February 22, 2021 17:36
[2021-02-22] MEDS: KETOROLAC 30 MG/ML 1ML VIAL IV SCH ×2 (18:00→21:37)
[2021-02-22] MEDS: KCL 40MEQ IN D5/0.45NS 1000ML 1,000 ML IV SCH ×2 (18:38→21:38)
[2021-02-22] MEDS: PIPERACILLIN/TAZOBACTAM SOD 4.5 GM in D5W MINI-BAG PLUS 50 ML IV SCH (21:37)
[2021-02-22 21:42] VITALS: BP 123/77
[2021-02-23] MEDS: PIPERACILLIN/TAZOBACTAM SOD 4.5 GM in D5W MINI-BAG PLUS 50 ML IV SCH ×4 (02:38→21:34)
[2021-02-23 05:29] VITALS: BP 122/77
[2021-02-23] MEDS: KETOROLAC 30 MG/ML 1ML VIAL IV SCH ×3 (05:30→17:24)
[2021-02-23 07:57] LABS: BASO # 0.1 10^3/uL (0.0-0.2); BASO % 0.7 % (0.0-1.0); EOS # 0.3 10^3/uL (0.0-0.5); HEMATOCRIT 39.4 % (42.0-52.0); LYMPH # 1.6 10^3/uL (1.5-5.0); LYMPH % 19.5 % (24.0-44.0); MEAN CORPUSCULAR HEMOGLOBIN 31.6 pg (27.0-33.0); MEAN CORPUSCULAR HGB CONC 33.2 g/dl (32.0-36.5); MEAN CORPUSCULAR VOLUME 95.2 fl (80.0-96.0); MONO # 0.9 10^3/uL (0.0-0.8); MONO % 11.4 % (2.0-8.0); NEUTROPHILS # 5.2 10^3/uL (1.5-8.5); PLATELET COUNT, AUTOMATED 283 10^3/uL (150-450); RED BLOOD COUNT 4.14 10^6/uL (4.30-6.10); WHITE BLOOD COUNT 8.2 10^3/uL (4.0-10.0)
[2021-02-23 08:04] LABS: HEMOGLOBIN 13.1 g/dl (13.5-17.5)
[2021-02-23 08:16] LABS: BLOOD UREA NITROGEN 14 MG/DL (7-18); CALCIUM LEVEL 8.2 MG/DL (8.5-10.1); CARBON DIOXIDE LEVEL 28 MEQ/L (21-32); CHLORIDE LEVEL 108 MEQ/L (98-107); GLOMERULAR FILTRATION RATE > 60.0 (>56); GLUCOSE, FASTING 126 MG/DL (70-100); POTASSIUM SERUM 4.5 MEQ/L (3.5-5.1); SODIUM LEVEL 139 MEQ/L (136-145)
[2021-02-23] MEDS: LACTOBACILLUS ACIDOPHILUS CAP (BACID) PO SCH ×3 (08:30→21:34)
[2021-02-23] MEDS: KCL 40MEQ IN D5/0.45NS 1000ML 1,000 ML IV SCH (08:30)
[2021-02-23] MEDS: ENOXAPARIN 40MG/0.4ML SYRINGE (J1650 PER 10MG) SC SCH (08:31)
[2021-02-23] MEDS: D5W/0.45% SODIUM CHLORIDE 1,000 ML IV SCH ×2 (12:31→17:24)
--- NOTE | 2021-02-23 16:39 | IPN ---
PROGRESS NOTE DATE: 02/23/2021 SUBJECTIVE: Patient denies any fever, chills, nausea, vomiting. His abdominal pain is improving, bilateral lower quadrants, is down to 1/10 when he is not moving. When he ambulates, it is unchanged, but when he is sitting for prolonged periods of time, the pain increases to 3/10. Patient denies any bright red blood per rectum, black tarry stools, constipation or diarrhea. No other issues overnight. PHYSICAL EXAMINATION: VITAL SIGNS: Temperature 97.8, pulse 56, respiratory rate 16, blood pressure 122/77, 97% on room air. GENERAL: Patient is awake, alert, oriented to person, place and time, answering questions appropriately. No icterus or jaundice. Patient has no respiratory accessory muscle use. HEENT: No jugular venous distention (JVD). No thyromegaly. Dry mucous membranes. No cervical lymphadenopathy or carotid bruits. LUNGS: Clear to auscultation. No wheezing, rales or rhonchi. HEART: S1, S2. Sinus rhythm. ABDOMEN: Soft, tender in bilateral lower quadrants. No rebound or guarding. No distention. EXTREMITIES: No clubbing, cyanosis or pitting edema. LABORATORY DATA: Laboratory data, imaging studies and microbiology have been reviewed. ASSESSMENT AND PLAN: A 60-year-old with history of recurrent diverticulitis with prior pericolonic abscess back in 2019, was supposed to have a colonic resection to be scheduled after March 2021 after his daughter graduates from school and follows with Dr. Bedolla with an upcoming appointment this coming , presents to the emergency room with one week history of bilateral lower quadrant abdominal pain, unable to eat, without fever or chills at home. CT abdomen and pelvis on showed diverticulitis without drainable abscess or perforation. Patient presented to minor treatment, was found to have no free air in abdominal film and had been taking Cipro and Flagyl since but with worsening symptoms. Patient is admitted under hospitalist service as a patient for two midnights due to recurrent diverticulitis. IMPRESSION: 1. Recurrent diverticulitis. 2. Reflux disease. 3. History of kidney stones. PLAN: Patient is currently on intravenous Zosyn, still nothing by mouth (NPO) status with intravenous (IV) fluids, being controlled with Toradol every 6 hours. Supportive care with antiemetics as needed. Currently has no episodes of hypoglycemia. Patient had a colonoscopy done in 2019 and has plans for a colonic resection by his general surgeon. He will have a follow up appointment this coming . We will continue the Zosyn for now at every 8 hours and may resume on home Cipro and Flagyl once he is medically stable. We plan on increasing his diet to a liquid diet in the morning as tolerated without abdominal pain, fever, chills, worsening nausea or vomiting. He may be discharged home with immediate followup with his surgeon. Deep venous thrombosis (DVT) prophylaxis with compression stockings and Lovenox subcutaneous. MTDD
[2021-02-23 22:00] VITALS: BP 120/77
[2021-02-24] MEDS: KETOROLAC 30 MG/ML 1ML VIAL IV SCH ×2 (01:01→05:26)
[2021-02-24] MEDS: D5W/0.45% SODIUM CHLORIDE 1,000 ML IV SCH ×2 (01:01→08:49)
[2021-02-24] MEDS: PIPERACILLIN/TAZOBACTAM SOD 4.5 GM in D5W MINI-BAG PLUS 50 ML IV SCH ×2 (03:35→08:47)
[2021-02-24 06:00] VITALS: BP 114/70
[2021-02-24 06:54] LABS: BASO # 0.1 10^3/uL (0.0-0.2); BASO % 0.6 % (0.0-1.0); EOS # 0.4 10^3/uL (0.0-0.5); EOS % 4.5 % (0.0-3.0); HEMATOCRIT 39.7 % (42.0-52.0); HEMOGLOBIN 13.1 g/dl (13.5-17.5); LYMPH # 1.6 10^3/uL (1.5-5.0); LYMPH % 19.1 % (24.0-44.0); MEAN CORPUSCULAR HEMOGLOBIN 31.6 pg (27.0-33.0); MEAN CORPUSCULAR VOLUME 95.9 fl (80.0-96.0); MONO % 11.2 % (2.0-8.0); NEUTROPHILS # 5.4 10^3/uL (1.5-8.5); NEUTROPHILS % 64.2 % (36.0-66.0); PLATELET COUNT, AUTOMATED 286 10^3/uL (150-450); RED BLOOD COUNT 4.14 10^6/uL (4.30-6.10); WHITE BLOOD COUNT 8.5 10^3/uL (4.0-10.0)
[2021-02-24 07:26] LABS: BLOOD UREA NITROGEN 7 MG/DL (7-18); CALCIUM LEVEL 8.6 MG/DL (8.5-10.1); CARBON DIOXIDE LEVEL 27 MEQ/L (21-32); CHLORIDE LEVEL 110 MEQ/L (98-107); CREATININE FOR GFR 1.05 MG/DL (0.70-1.30); GLOMERULAR FILTRATION RATE > 60.0 (>56); GLUCOSE, FASTING 133 MG/DL (70-100); POTASSIUM SERUM 4.5 MEQ/L (3.5-5.1); SODIUM LEVEL 142 MEQ/L (136-145)
[2021-02-24] MEDS: ENOXAPARIN 40MG/0.4ML SYRINGE (J1650 PER 10MG) SC SCH (08:47)
[2021-02-24] MEDS: LACTOBACILLUS ACIDOPHILUS CAP (BACID) PO SCH (08:47)
--- NOTE | 2021-02-24 11:10 | DS.PDOC ---
Discharge Summary General Date of Admission February 22, 2021 at 14:50 Date of Discharge 02/24/21 Discharge Summary DISCHARGE DIAGNOSES 1. Recurrent diverticulitis. 2. Reflux disease. 3. History of kidney stones. DISCHARGE MEDICATIONS SEE BELOW DISCHARGE INSTRUCTIONS: PRIMARY CARE PHYSICIAN APPOINTMENT IN 5 DAYS GENERAL SURGICAL APPOINTMENT THIS WEDNESDAY PREVIOUSLY SCHEDULED HOSPITAL COURSE: A 60-year-old with history of recurrent diverticulitis with prior pericolonic abscess back in 2019, was supposed to have a colonic resection to be scheduled after March 2021 after his daughter graduates from school and follows with Dr. Bedolla with an upcoming appointment this coming , presents to the emergency room with one week history of bilateral lower quadrant abdominal pain, unable to eat, without fever or chills at home. CT abdomen and pelvis on showed diverticulitis without drainable abscess or perforation. Patient presented to minor treatment, was found to have no free air in abdominal film and had been taking Cipro and Flagyl since but with worsening symptoms. Patient was admitted under hospitalist service as a patient for two midnights due to recurrent diverticulitis. Patient was started on intravenous Zosyn, kept nothing by mouth (NPO) For 48 hours, intravenous (IV) fluids, intravenous Toradol every 6 hours. Supportive care with antiemetics as needed.. He had no episodes of hypoglycemia. Patient had a colonoscopy done in 2019 and has plans for a colonic resection by his general surgeon. He will have a follow up appointment this coming . Patient's diet was advanced from nothing by mouth to liquid diet as tolerated Cipro and Flagyl once he is medically stable. We plan on increasing his diet to a liquid diet as tolerated without abdominal pain, fever, chills, worsening nausea or vomiting. He may be discharged home with immediate followup with his surgeon. Deep venous thrombosis (DVT) prophylaxis with compression stockings and Lovenox subcutaneous. DISCHARGE PHYSICAL EXAM: . VITALS: SEE BELOW GENERAL: Patient is awake, alert, oriented to person, place and time, answering questions appropriately. No icterus or jaundice. Patient has no respiratory accessory muscle use. HEENT: No jugular venous distention (JVD). No thyromegaly. Dry mucous membranes. No cervical lymphadenopathy or carotid bruits. LUNGS: Clear to auscultation. No wheezing, rales or rhonchi. HEART: S1, S2. Sinus rhythm. ABDOMEN: Soft, tender in bilateral lower quadrants. No rebound or guarding. No distention. EXTREMITIES: No clubbing, cyanosis or pitting edema. DISCHARGE LABORATORY DATA, IMAGING STUDIES, MICROBIOLOGY, SEE BELOW TIME SPENT ON HOSPITAL DISCHARGE 30 MINUTES Vital Signs/I&Os Vital Signs Date Time Temp Pulse Resp B/P (MAP) Pulse Ox O2 Delivery O2 Flow Rate FiO2 02/24/21 06:00 97.3 63 17 114/70 (85) 95 Room Air I&O- Last 24 Hours up to 6 AM 02/24/21 06:00 Intake Total 1800 ml Output Total 1650 ml Balance 150 ml Laboratory Data Labs 24H Laboratory Tests 2 02/24/21 06:40: Immature Granulocyte % (Auto) 0.4, Neutrophils (%) (Auto) 64.2, Lymphocytes (%) (Auto) 19.1L, Monocytes (%) (Auto) 11.2H, Eosinophils (%) (Auto) 4.5H, Basophils (%) (Auto) 0.6, Neutrophils # (Auto) 5.4, Lymphocytes # (Auto) 1.6, Monocytes # (Auto) 1.0H, Eosinophils # (Auto) 0.4, Basophils # (Auto) 0.1, Nucleated Red Blood Cells % (auto) 0.0, Anion Gap 5L, Glomerular Filtration Rate > 60.0, Calcium Level 8.6 CBC/BMP Laboratory Tests 02/24/21 06:40 Discharge Medications Scheduled Ciprofloxacin (Cipro) 500 Mg/5 Ml Anahi.mc.rec, 500 MG PO BID, (Reported) Docusate Sodium (Colace) 100 Mg Capsule, 100 MG PO TID, (Reported) Lactobacillus Combo No.10 (Probiotic) 1 Each Capsule, 1 CAP PO DAILY, (Reported) Metronidazole (Metronidazole) 500 Mg Tablet, 500 MG PO TID, (Reported) Allergies Coded Allergies: No Known Allergies (Unverified , 08/11/19) VENKAT WILDER MD February 24, 2021 11:10
== END 2021-02-24 10:55 | disposition home or self-care (01) | DRG 392 ==
LOC: M ED 12:06 → M ED INP 14:50 → M MS5PR 16:15
PROVIDERS: ADMIT General Practice; ATTEND General Practice
DX: K57.92 Diverticulitis of intestine, part unspecified, without perforation or abscess without bleeding (principal); K21.9 Gastro-esophageal reflux disease without esophagitis; Z79.899 Other long term (current) drug therapy; Z87.442 Personal history of urinary calculi; Z87.891 Personal history of nicotine dependence

== ENCOUNTER → 2021-04-17 | Outpatient (CLI) | payer OTHER ==
[~2021-04-17] MED LIST changes: +CIPR500S PO; +COLA100C5 PO; +CVS1CAP2 PO; +METR-265 PO
[2021-04-17 16:27] LABS: HEMOGLOBIN A1c 5.5 %
[2021-04-17 16:43] LABS: CHOLESTEROL RISK RATIO 4.018 (<5)
== END ==
LOC: M WUC 11:11
PROVIDERS: ATTEND Student in an Organized Health Care Education/Training Program
DX: Z76.89 Persons encountering health services in other specified circumstances (principal)

== ENCOUNTER → 2021-05-09 | Outpatient (CLI) | payer OTHER ==
[~2021-05-09] MED LIST changes: +META0.52 PO
== END ==
LOC: M LABSMTC 09:44
PROVIDERS: ATTEND Anesthesiology
DX: Z01.812 Encounter for preprocedural laboratory examination (principal); Z20.822 Contact with and (suspected) exposure to COVID-19

== ENCOUNTER → 2021-05-09 | Outpatient (CLI) | payer OTHER ==
--- NOTE | 2021-05-09 22:46 | ECGEPIP ---
[facility] Test Date: 2021-05-09 Pat Name: AUGUSTIN HENDERSON Department: Room: - Gender: Male [employer] Consultant And Designer: NAOMI : 1960 Requested By: Ahmet Park Order Number: [id number] Reading MD: Theo Richardson Measurements Intervals [place] Rate: 58 P: 79 WV: 156 QRS: 83 QRSD: 90 T: 61 QT: 404 QTc: 396 Interpretive Statements Sinus bradycardia Normal EKG Comparison tracing not on file Electronically Signed on 05-09-2021 22:46:30 EDT by Theo Richardson
== END ==
LOC: M EKG 10:23
PROVIDERS: ATTEND Anesthesiology
DX: J44.9 Chronic obstructive pulmonary disease, unspecified (principal); Z01.818 Encounter for other preprocedural examination

== ENCOUNTER 2021-05-14 06:03 | Inpatient (IN) | payer OTHER ==
[~2021-05-14] VITALS: Ht 188 cm; Wt 95.7 kg
[2021-05-14] VITALS (7 sets, daily range): BP systolic 112–114; BP diastolic 66–67
[~2021-05-14 06:03] MED LIST changes: +ALVIMOPAN 12 MG CAPSULE (ENTEREG) PO ONE; +CelecoXIB 400 MG CAP PO ONE; +LR 1,000 ML IV ONE; +cefoTEtan DISODIUM 2 GM in D5W MINI-BAG PLUS 50 ML IV ONE; +metroNIDAZOLE 500 MG in IV 1 EA IV ONE
[2021-05-14] MEDS ORDERED: NEOM500T (06:23)
[2021-05-14] MEDS ORDERED: METR-265 (06:23)
[2021-05-14] MEDS ORDERED: SUPRSOL2 (06:23)
[2021-05-14] MEDS ORDERED: HEPARIN SOD (PORCINE) 5000UNITS/ML 1ML VIAL/SYRINGE SQ ONE (07:00)
[2021-05-14] MEDS ORDERED: SUGAMMADEX SODIUM 500 MG/5 ML VIAL (BRIDION) As Ordered ONE (07:09)
[2021-05-14] MEDS ORDERED: ROCURONIUM BROMIDE 50 MG/5 ML VIAL As Ordered ONE (07:09)
[2021-05-14] MEDS ORDERED: KETOROLAC 60MG 2ML VIAL As Ordered ONE (07:09)
[2021-05-14] MEDS ORDERED: propofoL 200 MG/20 ML VIAL As Ordered ONE (07:09)
[2021-05-14] MEDS ORDERED: ONDANSETRON 4MG/2ML VIAL As Ordered ONE (07:09)
[2021-05-14] MEDS ORDERED: LIDOCAINE 2% 100MG/5ML SDV (FOR ANES.) As Ordered ONE (07:09)
[2021-05-14] MEDS ORDERED: HYDROmorphone HCL 2 MG/ML 1ML VIAL (J1170) As Ordered ONE (07:09)
[2021-05-14] MEDS ORDERED: dexameTHASONE 4 MG/ML 1ML VIAL (J1100 PER 1MG) As Ordered ONE (07:09)
[2021-05-14] MEDS ORDERED: fentaNYL 100 MCG/2 ML INJECTION (J3010) As Ordered ONE ×2 (07:09→13:58)
[2021-05-14] MEDS ORDERED: MIDAZOLAM INJ 2MG/2ML VIAL (J2250 PER 1MG) As Ordered ONE (07:10)
[2021-05-14] MEDS ORDERED: LIDOCAINE 5% OINT 30GM TUBE As Ordered ONE (07:19)
[2021-05-14] MEDS ORDERED: cefoTEtan INJ 2GM VIAL (S0074 PER 500MG) As Ordered ONE (09:42)
[2021-05-14] MEDS ORDERED: BUPIVACAINE LIPOSOME/PF 1.3% 20ML VIAL (13.3MG/ML)(EXPAREL)(C9290 PER1MG) As Ordered ONE (10:37)
[2021-05-14] MEDS ORDERED: LIDOCAINE 1% SDV 30ML VIAL As Ordered ONE (10:37)
[2021-05-14] MEDS ORDERED: BUPIVACAINE HCL 0.25% 10ML VIAL As Ordered ONE (10:37)
[2021-05-14] MEDS ORDERED: BUPIVACAINE HCL 0.25% 30ML VIAL As Ordered ONE (10:37)
[2021-05-14] MEDS ORDERED: MORPHINE 2 MG/ML 1ML VIAL (J2270) IV PRN (13:45)
[2021-05-14] MEDS ORDERED: ONDANSETRON 4MG/2ML VIAL IV PRN ×2 (13:45→14:00)
[2021-05-14] MEDS: LR 1,000 ML IV SCH (13:45)
[2021-05-14] MEDS ORDERED: MEPERIDINE INJ 25 MG/ML VIAL (J2175) As Ordered ONE (13:53)
[2021-05-14] MEDS ORDERED: LR 1,000 ML IV SCH (14:00)
[2021-05-14] MEDS ORDERED: oxyCODONE 5MG TAB PO PRN (14:00)
[2021-05-14] MEDS: fentaNYL 100 MCG/2 ML INJECTION (J3010) IV PRN ×4 (14:09→14:25)
[2021-05-14] MEDS: MEPERIDINE INJ 25 MG/ML VIAL (J2175) IV PRN ×2 (14:09→14:28)
[2021-05-14] MEDS: PERCOCET 5MG/325MG TAB PO PRN (18:18)
[2021-05-14] MEDS: HEPARIN SOD (PORCINE) 5000UNITS/ML 1ML VIAL/SYRINGE SC SCH (20:01)
[2021-05-14] MEDS: KETOROLAC 30 MG/ML 1ML VIAL IV SCH (20:01)
[2021-05-15] VITALS: BP 115/68
[2021-05-15] MEDS: KETOROLAC 30 MG/ML 1ML VIAL IV SCH ×4 (02:00→20:04)
[2021-05-15 06:00] VITALS: BP 118/75
[2021-05-15 07:46] LABS: BASO % 0.4 % (0.0-1.0); EOS # 0.1 10^3/uL (0.0-0.5); EOS % 0.8 % (0.0-3.0); HEMATOCRIT 42.4 % (42.0-52.0); HEMOGLOBIN 14.2 g/dl (13.5-17.5); LYMPH # 2.1 10^3/uL (1.5-5.0); LYMPH % 21.5 % (24.0-44.0); MEAN CORPUSCULAR HEMOGLOBIN 31.8 pg (27.0-33.0); MEAN CORPUSCULAR HGB CONC 33.5 g/dl (32.0-36.5); MEAN CORPUSCULAR VOLUME 95.1 fl (80.0-96.0); MONO # 1.1 10^3/uL (0.0-0.8); MONO % 11.4 % (2.0-8.0); NEUTROPHILS # 6.3 10^3/uL (1.5-8.5); NEUTROPHILS % 65.5 % (36.0-66.0); PLATELET COUNT, AUTOMATED 259 10^3/uL (150-450); RED BLOOD COUNT 4.46 10^6/uL (4.30-6.10); WHITE BLOOD COUNT 9.6 10^3/uL (4.0-10.0)
[2021-05-15 08:10] LABS: BLOOD UREA NITROGEN 13 MG/DL (7-18); CALCIUM LEVEL 8.5 MG/DL (8.5-10.1); CARBON DIOXIDE LEVEL 28 MEQ/L (21-32); CHLORIDE LEVEL 107 MEQ/L (98-107); CREATININE FOR GFR 1.23 MG/DL (0.70-1.30); GLOMERULAR FILTRATION RATE > 60.0 (>56); GLUCOSE, FASTING 101 MG/DL (70-100); POTASSIUM SERUM 4.5 MEQ/L (3.5-5.1); SODIUM LEVEL 139 MEQ/L (136-145)
[2021-05-15] MEDS: ALVIMOPAN 12 MG CAPSULE (ENTEREG) PO SCH ×2 (08:22→20:04)
[2021-05-15] MEDS: HEPARIN SOD (PORCINE) 5000UNITS/ML 1ML VIAL/SYRINGE SC SCH ×2 (08:22→20:04)
[2021-05-15] MEDS: PANTOPRAZOLE 40MG VIAL (C9113 PER 1) IV SCH (08:22)
[2021-05-15] MEDS: LR 1,000 ML IV SCH ×2 (08:22→17:30)
--- NOTE | 2021-05-15 10:02 | ROOPDOC ---
[facility] Report Of Operation Report of Operation DATE OF PROCEDURE: 05/14/21 PREPROCEDURE DIAGNOSES: Recurrent acute diverticulitis. POSTPROCEDURE DIAGNOSES: chronic diverticulitis. PROCEDURE PERFORMED: Robotic assisted laparoscopic sigmoid colectomy with proctoscopy colic anastomosis (EEA 29 mm stapler). SURGEON: Fernandez Bedolla MD, REGISTRAR MUSEUM: MD Dr. Radha Mccarty assited with performing the proctoscopy colic anastomosis x2, flexible sigmoidoscopy for assessment of the anastomosis x2 ANESTHESIA: General endotracheal anesthesia. ESTIMATED BLOOD LOSS: Approximately 50 mL. COMPLICATIONS: none. REMARKS: 60-year-old male with multiple presentations of acute diverticulitis over the past 2 years or so including complicated diverticulitis with abscess that requires both percutaneous and laparoscopic drainage of the abscess. I have advised interval sigmoid colectomy due to this multiple recurrences. FINDINGS: Bulky mesentery. The most involved portion of the sigmoid colon seems to be the distal colon next to the rectum with slight extension of the chronic swelling to the top portion of the rectum. There is a chronically scarred scar tissue posterior and left of the pelvis where the prior abscesses were located. Small leftover abscess over the area would be open this up. SPECIMENS REMOVED: Sigmoid colon PROCEDURE NOTE: Findings as mentioned above. When he first tried to do a proctoscopy colic anastomosis, we had noted a leak at the 7 to 9 o'clock position which is a fairly large defect so I decided to redo the anastomosis. Second anastomosis looked much better aligned, good donuts, good perfusion and ICG, no staple line bleed on flexible sigmoidoscopy no leak on testing under water. DESCRIPTION OF PROCEDURE: FERNANDEZ BEDOLLA MD May 15, 2021 10:02
--- NOTE | 2021-05-15 10:12 | IPNPDOC ---
Text Note Date of Service The patient was seen on 05/15/21. NOTE Patient reports he is fairly comfortable, mild discomfort of the abdomen. De nies any nausea or vomiting. He is tolerating clears. He reports he is passing flatus, no bowel movements yet. Vital signs past 24 hours T-max 98.5 T-current 98.5 BP 118/75 pulse rate 66 respiratory rate 2195% on 2 L nasal cannula I/O urine output 1150 (clear urine) JOCELYN drain 60 mL No bowel movement Eye examination Patient laying flat in bed, comfortable in appearance Awake alert and oriented Lungs clear to auscultation, no wheezing Regular heart rate and rhythm Abdomen is mildly distended soft he has for robotic/laparoscopic port sites and a Pfannenstiel extraction site all covered with Dermabond. Mild bruising at the right lower quadrant and the extraction site. He has a JOCELYN drain coming from the right most lower port site which has mildly sanguinous drainage appearance. Minimal tender around the incision site and extraction site, no rebound or guarding No significant extremity edema Labs reviewed WBC 9.6 Normal electrolytes CRP 1.9 Impression and plan Postop day 1 following robotic assisted laparoscopic sigmoid colectomy with proctoscopy colic anastomosis for recurrent acute diverticulitis/chronic diverticulitis He looks to be doing well. I will advance him to soft foods. I will discontinue the Duque catheter. I have added Entereg which is part of my ERAS protocol Pain control is adequate I have instructed him to ambulate to the hallways Continue with incentive spirometer Heparin for DVT prophylaxis VS,Fishbone, I+O VS, Fishbone, I+O Laboratory Tests 05/15/21 07:15 Vital Signs Date Time Temp Pulse Resp B/P (MAP) Pulse Ox O2 Delivery O2 Flow Rate FiO2 05/15/21 06:00 98.5 66 21 118/75 (89) 95 Nasal Cannula 2.0 I&O- Last 24 Hours up to 6 AM 05/15/21 06:00 Intake Total 2960 ml Balance 2960 ml DOTTIE AGUIRRE MD May 15, 2021 10:12
[2021-05-15] MEDS: PERCOCET 5MG/325MG TAB PO PRN ×2 (10:31→18:32)
[2021-05-15 14:01] VITALS: BP 104/67
[2021-05-15 22:00] VITALS: BP 143/75
[2021-05-16] MEDS: KETOROLAC 30 MG/ML 1ML VIAL IV SCH ×4 (02:38→21:44)
[2021-05-16] MEDS: LR 1,000 ML IV SCH ×2 (02:38→07:27)
[2021-05-16 06:00] VITALS: BP 139/77
[2021-05-16 06:49] LABS: BASO # 0.1 10^3/uL (0.0-0.2); BASO % 0.7 % (0.0-1.0); EOS # 0.4 10^3/uL (0.0-0.5); EOS % 5.9 % (0.0-3.0); HEMATOCRIT 38.7 % (42.0-52.0); HEMOGLOBIN 12.9 g/dl (13.5-17.5); LYMPH # 2.1 10^3/uL (1.5-5.0); LYMPH % 29.2 % (24.0-44.0); MEAN CORPUSCULAR HEMOGLOBIN 31.5 pg (27.0-33.0); MEAN CORPUSCULAR HGB CONC 33.3 g/dl (32.0-36.5); MEAN CORPUSCULAR VOLUME 94.6 fl (80.0-96.0); MONO # 0.8 10^3/uL (0.0-0.8); MONO % 10.4 % (2.0-8.0); NEUTROPHILS # 3.9 10^3/uL (1.5-8.5); NEUTROPHILS % 53.4 % (36.0-66.0); PLATELET COUNT, AUTOMATED 224 10^3/uL (150-450); RED BLOOD COUNT 4.09 10^6/uL (4.30-6.10); WHITE BLOOD COUNT 7.3 10^3/uL (4.0-10.0)
[2021-05-16 07:11] LABS: BLOOD UREA NITROGEN 8 MG/DL (7-18); C REACTIVE PROTEIN QUANTITATIV 2.06 MG/DL (0.00-0.30); CALCIUM LEVEL 8.2 MG/DL (8.5-10.1); CARBON DIOXIDE LEVEL 28 MEQ/L (21-32); CHLORIDE LEVEL 107 MEQ/L (98-107); CREATININE FOR GFR 0.92 MG/DL (0.70-1.30); GLOMERULAR FILTRATION RATE > 60.0 (>56); GLUCOSE, FASTING 99 MG/DL (70-100); POTASSIUM SERUM 4.3 MEQ/L (3.5-5.1); SODIUM LEVEL 140 MEQ/L (136-145)
--- NOTE | 2021-05-16 08:56 | IPNPDOC ---
Text Note Date of Service The patient was seen on 05/16/21. NOTE Patient seen this morning. He reports some crampy lower left abdominal pain after having 2 small loose bowel movements early this morning. He had passed some small clots overnight. He reports passing flatus. He reports he was ambulating to the hallways yesterday. He has been on soft diet and has tolerated this without any nausea, vomiting, severe bloating. Vital signs for the past 24 hours reviewed. T-max 98.4. Last vital signs T-current 98.4 blood pressure 139/77 pulse rate 82 respiratory rate 20 pulse oximetry reading 97% 2 L nasal cannula I/O urine output 2150 JOCELYN drain 20 Examination patient looks mildly uncomfortable Lung sounds clear to auscultation bilaterally Regular heart rate and rhythm Abdomen is minimally distended with soft. He is 5 port sites 1 of which is containing the Sarath-Maguire drain over the right lower quadrant area. JOCELYN drainage is rn gastroenterology serosanguineous in character. Extraction site is through a Pfannenstiel incision at the suprapubic area. Mild bruising no ecchymosis no hematoma. All incisions are intact. Mildly tender over the left lower quadrant, nontender around the Pfannenstiel extraction site. No rebound or gua rding. No significant extremity edema Laboratories WBC 7.3 Electrolytes normal CRP 2.06 Impression and plan Patient is now postop day 2 following robotic assisted laparoscopic sigmoid colectomy for recurrent acute diverticulitis Looks to be doing well. He showing signs of bowel function now. He has some discomfort while trying to pass out some stool may be from straining or from just gas bloating locally over the area. We will continue to monitor him. Otherwise not showing signs of severe inflammatory response. Abdominal exam is benign. I will continue him on soft foods for now. I will saline lock his IV fluids. I encouraged him to continue to ambulate during the day and do deep breathing exercises with incentive spirometer DVT prophylaxis with heparin subcu Anticipate he may be ready to go home either tomorrow or the next day depending on subsequent hospital course. VS,Fishbone, I+O VS, Fishbone, I+O Laboratory Tests 05/16/21 06:23 Vital Signs Date Time Temp Pulse Resp B/P (MAP) Pulse Ox O2 Delivery O2 Flow Rate FiO2 05/16/21 06:00 98.4 80 20 139/77 (97) 97 Nasal Cannula 2.0 I&O- Last 24 Hours up to 6 AM 05/16/21 06:00 Intake Total 1850 ml Output Total 2240 ml Balance -390 ml DOTTIE AGUIRRE MD May 16, 2021 08:56
[2021-05-16] MEDS: PANTOPRAZOLE 40MG VIAL (C9113 PER 1) IV SCH (09:45)
[2021-05-16] MEDS: ALVIMOPAN 12 MG CAPSULE (ENTEREG) PO SCH ×2 (09:45→21:43)
[2021-05-16] MEDS: HEPARIN SOD (PORCINE) 5000UNITS/ML 1ML VIAL/SYRINGE SC SCH ×2 (09:45→21:44)
[2021-05-16 14:00] VITALS: BP 139/77
[2021-05-16 21:30] VITALS: BP 144/87
[2021-05-17 01:54] VITALS: O2SAT 93
[2021-05-17] MEDS: KETOROLAC 30 MG/ML 1ML VIAL IV SCH ×4 (02:10→20:29)
[2021-05-17 06:00] VITALS: BP 136/88
[2021-05-17 06:51] LABS: BASO # 0.1 10^3/uL (0.0-0.2); BASO % 0.7 % (0.0-1.0); EOS # 0.5 10^3/uL (0.0-0.5); EOS % 6.9 % (0.0-3.0); HEMATOCRIT 40.1 % (42.0-52.0); HEMOGLOBIN 13.3 g/dl (13.5-17.5); LYMPH # 2.2 10^3/uL (1.5-5.0); LYMPH % 30.1 % (24.0-44.0); MEAN CORPUSCULAR HEMOGLOBIN 31.3 pg (27.0-33.0); MEAN CORPUSCULAR HGB CONC 33.2 g/dl (32.0-36.5); MEAN CORPUSCULAR VOLUME 94.4 fl (80.0-96.0); MONO # 0.8 10^3/uL (0.0-0.8); MONO % 10.3 % (2.0-8.0); NEUTROPHILS # 3.8 10^3/uL (1.5-8.5); NEUTROPHILS % 51.6 % (36.0-66.0); PLATELET COUNT, AUTOMATED 254 10^3/uL (150-450); RED BLOOD COUNT 4.25 10^6/uL (4.30-6.10); WHITE BLOOD COUNT 7.3 10^3/uL (4.0-10.0)
[2021-05-17 07:15] LABS: BLOOD UREA NITROGEN 9 MG/DL (7-18); C REACTIVE PROTEIN QUANTITATIV 1.57 MG/DL (0.00-0.30); CALCIUM LEVEL 8.8 MG/DL (8.5-10.1); CARBON DIOXIDE LEVEL 30 MEQ/L (21-32); CHLORIDE LEVEL 106 MEQ/L (98-107); CREATININE FOR GFR 0.94 MG/DL (0.70-1.30); GLOMERULAR FILTRATION RATE > 60.0 (>56); GLUCOSE, FASTING 106 MG/DL (70-100); POTASSIUM SERUM 4.3 MEQ/L (3.5-5.1); SODIUM LEVEL 140 MEQ/L (136-145)
[2021-05-17 09:00] VITALS: O2SAT 95
--- NOTE | 2021-05-17 09:34 | IPNPDOC ---
Text Note Date of Service The patient was seen on 05/17/21. NOTE Looks more comfortable today, reports minimal residual discomfort. tolerating soft foods. Denies nausea. Reports a lot of flatus, small semiformed stools yesterday. VS stable Exam ambulating the room, comfortable lungs clear bilaterally regular heart rate and rhythm abdomen nondistended, soft, port sites c/d/i beatriz drain light pink serosanguenous drainage. extraction site c/d/i nontender llq and suprapubic no extremity edema labs reviewed impression and plan POD3 RA lap sigmoid colectomy for recurrent diverticulitis d/c beatriz drain low residue diet ambulate the hallways incentive spirometer path reviewed: Diverticulitis if continues to do well d/c tomorrow VS,Mary, I+O VS, Mary, I+O Laboratory Tests 05/17/21 06:29 Vital Signs Date Time Temp Pulse Resp B/P (MAP) Pulse Ox O2 Delivery O2 Flow Rate FiO2 05/17/21 06:00 98.2 69 20 136/88 (104) 94 Room Air 05/16/21 06:00 2.0 I&O- Last 24 Hours up to 6 AM 05/17/21 06:00 Intake Total 1710 ml Output Total 50 ml Balance 1660 ml DOTTIE AGUIRRE MD May 17, 2021 09:34
[2021-05-17] MEDS: ALVIMOPAN 12 MG CAPSULE (ENTEREG) PO SCH ×2 (10:05→20:28)
[2021-05-17] MEDS: PANTOPRAZOLE 40MG VIAL (C9113 PER 1) IV SCH (10:06)
[2021-05-17] MEDS: HEPARIN SOD (PORCINE) 5000UNITS/ML 1ML VIAL/SYRINGE SC SCH ×2 (10:06→20:28)
[2021-05-17 14:00] VITALS: BP 143/87
[2021-05-17 17:00] VITALS: O2SAT 96
[2021-05-17] MEDS: PERCOCET 5MG/325MG TAB PO PRN (17:39)
[2021-05-17 22:00] VITALS: BP 133/82
[2021-05-18] MEDS: KETOROLAC 30 MG/ML 1ML VIAL IV SCH ×3 (02:11→14:00)
[2021-05-18 06:00] VITALS: BP 137/62
[2021-05-18 06:17] LABS: BASO # 0.1 10^3/uL (0.0-0.2); BASO % 0.8 % (0.0-1.0); EOS # 0.6 10^3/uL (0.0-0.5); EOS % 8.1 % (0.0-3.0); HEMATOCRIT 38.2 % (42.0-52.0); HEMOGLOBIN 12.6 g/dl (13.5-17.5); LYMPH # 2.2 10^3/uL (1.5-5.0); LYMPH % 30.2 % (24.0-44.0); MEAN CORPUSCULAR HEMOGLOBIN 30.8 pg (27.0-33.0); MEAN CORPUSCULAR VOLUME 93.4 fl (80.0-96.0); MONO # 0.7 10^3/uL (0.0-0.8); MONO % 9.7 % (2.0-8.0); NEUTROPHILS # 3.7 10^3/uL (1.5-8.5); NEUTROPHILS % 50.8 % (36.0-66.0); PLATELET COUNT, AUTOMATED 247 10^3/uL (150-450); RED BLOOD COUNT 4.09 10^6/uL (4.30-6.10); WHITE BLOOD COUNT 7.3 10^3/uL (4.0-10.0)
[2021-05-18 06:38] LABS: BLOOD UREA NITROGEN 9 MG/DL (7-18); C REACTIVE PROTEIN QUANTITATIV 1.15 MG/DL (0.00-0.30); CALCIUM LEVEL 8.7 MG/DL (8.5-10.1); CARBON DIOXIDE LEVEL 28 MEQ/L (21-32); CHLORIDE LEVEL 108 MEQ/L (98-107); CREATININE FOR GFR 0.95 MG/DL (0.70-1.30); GLOMERULAR FILTRATION RATE > 60.0 (>56); GLUCOSE, FASTING 97 MG/DL (70-100); POTASSIUM SERUM 4.2 MEQ/L (3.5-5.1); SODIUM LEVEL 142 MEQ/L (136-145)
[2021-05-18] MEDS: PANTOPRAZOLE 40MG VIAL (C9113 PER 1) IV SCH (08:42)
[2021-05-18] MEDS: ALVIMOPAN 12 MG CAPSULE (ENTEREG) PO SCH (08:42)
[2021-05-18] MEDS: HEPARIN SOD (PORCINE) 5000UNITS/ML 1ML VIAL/SYRINGE SC SCH (08:43)
[2021-05-18] MEDS ORDERED: PERCOCET PO (09:37)
--- NOTE | 2021-05-18 09:40 | DS.PDOC ---
Discharge Summary General Date of Admission May 14, 2021 at 06:03 Date of Discharge May 18, 2021 Attending Physician: DOTTIE AGUIRRE MD Discharge Summary PROCEDURES PERFORMED DURING STAY: Robotic assisted laparoscopic sigmoid colectomy. ADMITTING DIAGNOSES: 1. Recurrent acute diverticulitis. DISCHARGE DIAGNOSES: 1. Recurrent acute over chronic diverticulitis. COMPLICATIONS/CHIEF COMPLAINT: Recurrent Acute Diverticulitis. HISTORY OF PRESENT ILLNESS: . HOSPITAL COURSE: . DISCHARGE MEDICATIONS: Please see below. ALLERGIES: Please see below. PHYSICAL EXAMINATION ON DISCHARGE: VITAL SIGNS: Please see below. GENERAL: HEENT: NECK: CARDIOVASCULAR EXAMINATION: RESPIRATORY EXAMINATION: ABDOMINAL EXAMINATION: EXTREMITIES: SKIN: NEUROLOGICAL EXAMINATION: PSYCHIATRIC EXAMINATION: LABORATORY DATA: Please see below. IMAGING: PROGNOSIS: ACTIVITY: [As tolerated]. DIET: DISCHARGE PLAN: DISPOSITION: . DISCHARGE INSTRUCTIONS: 1. . ITEMS TO FOLLOWUP ON ON OUTPATIENT: 1. . DISCHARGE CONDITION: [Stable]. TIME SPENT ON DISCHARGE: minutes. Vital Signs/I&Os Vital Signs Date Time Temp Pulse Resp B/P (MAP) Pulse Ox O2 Delivery O2 Flow Rate FiO2 05/18/21 06:00 97.8 74 15 137/62 (87) 96 Room Air 05/16/21 06:00 2.0 I&O- Last 24 Hours up to 6 AM 05/18/21 06:00 Intake Total 1960 ml Balance 1960 ml Laboratory Data Labs 24H Laboratory Tests 2 05/18/21 05:57: Anion Gap 6L, Glomerular Filtration Rate > 60.0, Calcium Level 8.7, C-Reactive Protein, Quantitative 1.15H 05/18/21 05:58: Immature Granulocyte % (Auto) 0.4, Neutrophils (%) (Auto) 50.8, Lymphocytes (%) (Auto) 30.2, Monocytes (%) (Auto) 9.7H, Eosinophils (%) (Auto) 8.1H, Basophils (%) (Auto) 0.8, Neutrophils # (Auto) 3.7, Lymphocytes # (Auto) 2.2, Monocytes # (Auto) 0.7, Eosinophils # (Auto) 0.6H, Basophils # (Auto) 0.1, Nucleated Red Blood Cells % (auto) 0.0 CBC/BMP Laboratory Tests 05/18/21 05:57 05/18/21 05:58 Discharge Medications Scheduled Lactobacillus Combo No.10 (Probiotic) 1 Each Capsule, 1 CAP PO DAILY, (Reported) Psyllium Husk (Metamucil) 0.4 Gm Capsule, 0.52 GM PO DAILY, (Reported) Scheduled PRN Oxycodone/Acetaminophen (Oxycodone-Acetaminophen 5-325) 1 Each Tablet, 1-2 TAB PO Q6HP PRN for MODERATE PAIN (PS 5-7) Allergies Coded Allergies: No Known Allergies (Unverified , 04/30/21) DOTTIE AGUIRRE MD May 18, 2021 09:40
== END 2021-05-18 14:15 | disposition home or self-care (01) | DRG 331 ==
LOC: M OR 06:03 → M MS5PR 15:20
PROVIDERS: ADMIT Surgery; ATTEND Surgery
PROC: 8E0W4CZ Robotic Assisted Procedure of Trunk Region, Percutaneous Endoscopic Approach (ICD-10-PCS; 2021-05-14)
PROC: 0DTN4ZZ Resection of Sigmoid Colon, Percutaneous Endoscopic Approach (ICD-10-PCS; principal; 2021-05-14 07:30)
DX: K57.32 Diverticulitis of large intestine without perforation or abscess without bleeding (principal)

== ENCOUNTER 2025-01-18 12:27 | Emergency (ER) | payer OTHER ==
[~2025-01-18] VITALS: Ht 188 cm; Wt 112.7 kg
[~2025-01-18 12:27] MED LIST changes: -ALVIMOPAN 12 MG CAPSULE (ENTEREG) PO ONE; -CelecoXIB 400 MG CAP PO ONE; -DOCU-153 PO; -LR 1,000 ML IV ONE; +METR-265; +NEOM500T; +ONDA-282 PO; -ONDA4TAB6 PO; +PERCOCET PO; +STOO100C30 PO; +SUPRSOL2; -cefoTEtan DISODIUM 2 GM in D5W MINI-BAG PLUS 50 ML IV ONE; -metroNIDAZOLE 500 MG in IV 1 EA IV ONE
[2025-01-18] MEDS: LIDOCAINE W/EPINEPHRINE 1% 20ML VIAL SC ONE (13:04)
[2025-01-18 13:19] VITALS: BP 131/86; TEMP 97.4; O2SAT 95
[2025-01-18] MEDS ORDERED: DOXY-441 PO (13:34)
[2025-01-18] MEDS: DOXYCYCLINE HYCLATE 100MG TABLET PO ONE (13:35)
== END 2025-01-18 13:43 | disposition home or self-care (01) ==
LOC: M ED 12:27
DX: L02.212 Cutaneous abscess of back [any part, except buttock and flank] (principal); M54.50 Low back pain, unspecified; Z79.2 Long term (current) use of antibiotics